=== PATIENT | female | born 1955 | race Caucasian/White ===

== ENCOUNTER → 2020-03-10 | Outpatient (CLI) | payer BC ==
[~2020-03-10] MED LIST: HYCET 7.5 MG-3473 ML PO; LORTAB 7.5/5001 TA3 PO; MIRALAX255 GM; NOHOMEMEDICATIONS; PRILOSEC 20 MG20 MG PO; ZOFRAN ODT4 MG PO
== END ==
LOC: LAB 14:17
PROVIDERS: ATTEND Neuromusculoskeletal Medicine & OMM
DX: R05 Cough (principal); Z20.828 Contact with and (suspected) exposure to other viral communicable diseases